=== PATIENT | male | born 1985 | race Two or more races ===

== ENCOUNTER 2022-10-14 03:39 | Inpatient (IN) | payer SELFPAY ==
[~2022-10-14] VITALS: Ht 165.1 cm; Wt 99.8 kg
--- NOTE | 2022-10-14 03:49 | NUR ---
BIBRA 60 FROM OUTSIDE BAR C/O SEIZURE PER PT HAS HISTORY OF SEIZURE PER PT DRANK SOME ALCOHOL TONIGHT. PATIENT IS A/O X 4, RR EVEN AND UNLABORED NO SOB NOTED. VSS. NO ACUTE DISTRESS NOTED. WILL CONTINUE TO MONITOR.
[2022-10-14] MEDS ORDERED: LEVETIRACETAM (500MG) 500 MG/5 ML VIAL IV ONE (03:53)
[2022-10-14] MEDS ORDERED: LEVETIRACETAM (500MG) 1,000 MG in IV NS 0.9% 100 ML IV SCH (04:00)
[2022-10-14] MEDS ORDERED: LORAZEPAM INJ 2 MG/ML VIAL ONE ×3 (04:16→12:34)
[2022-10-14] MEDS ORDERED: LORAZEPAM INJ 2 MG/ML VIAL IV ONE ×2 (04:30→13:00)
--- NOTE | 2022-10-14 04:49 | NUR ---
BLOOD WORK COLLECTED SENT TO LAB
[2022-10-14 05:07] LABS: BASOPHILS # (AUTO) 0.1 K/uL (0.0-0.2); BASOPHILS % (AUTO) 0.7 % (0.0-2.0); EOSINOPHILS % (AUTO) 1.1 % (0.0-6.0); HEMATOCRIT 43 % (39-51); HEMOGLOBIN 14.4 g/dL (13.5-17.5); LYMPHOCYTES # (AUTO) 2.1 K/uL (0.8-4.8); MEAN CORPUSCULAR HGB CONC 34 g/dl (31.0-36.0); MEAN CORPUSCULAR VOLUME 86 fL (80-96); MONOCYTES # (AUTO) 0.3 K/uL (0.1-1.30); MONOCYTES % (AUTO) 4.1 % (2.0-12.0); NEUTROPHILS # (AUTO) 4.7 K/uL (1.8-8.9); NEUTROPHILS % (AUTO) 65.1 % (43.0-81.0); PLATELET COUNT (AUTO) 271 K/uL (150-450); RED BLOOD CELL COUNT(AUTO) 4.97 MIL/uL (4.5-6.0); WHITE BLOOD COUNT (AUTO) 7.2 K/uL (4.3-11.0)
[2022-10-14 05:32] LABS: CALCIUM, SERUM 8.9 mg/dL (8.5-10.1); CREATININE 2.2 mg/dL (0.6-1.3); POTASSIUM 3.7 mmol/L (3.5-5.1)
[2022-10-14 05:49] LABS: PHENYTOIN (DILANTIN) 0.7 ug/ml (10.0-20.0)
[2022-10-14] MEDS ORDERED: LEVE500T9 PO (06:07)
[2022-10-14] MEDS ORDERED: ACETAMINOPHEN ES 500 MG TABLET PO ONE (07:00)
[2022-10-14] MEDS ORDERED: ACETAMINOPHEN ES 500 MG TABLET ONE (07:01)
--- NOTE | 2022-10-14 07:07 | NUR ---
Patient discharged to home in stable condition. Written and verbal after care instructions given. Patient verbalizes understanding of instruction.
--- NOTE | 2022-10-14 07:15 | NUR ---
UPON D/C PATIENT HAD SEIZURE. ER MADE AWARE. PT VSS.
[2022-10-14] MEDS ORDERED: LORAZEPAM INJ 2 MG/ML VIAL IVP ONE (07:30)
--- NOTE | 2022-10-14 07:45 | NUR ---
covid swab taken sent to lab
--- NOTE | 2022-10-14 07:51 | NUR ---
Witnessed Siezure lasting approx 1 min nd 45secs. Ativan Given. Pt now AAOx4. responding appropritely, able to make needs known. c/o of headache. Pending admit
--- NOTE | 2022-10-14 07:56 | NUR ---
MOVE SHEET SUBMITTED
--- NOTE | 2022-10-14 08:21 | NUR ---
COVID SWAB COLLECTED AND SENT TO LAB
--- NOTE | 2022-10-14 08:41 | NUR ---
[facility] PAGED
--- NOTE | 2022-10-14 09:33 | NUR ---
[facility] PAGED
[2022-10-14] MEDS ORDERED: PHEN100C4 PO (09:34)
--- NOTE | 2022-10-14 10:08 | NUR ---
[facility] PAGED
--- NOTE | 2022-10-14 10:08 | NUR ---
DR KNIGHT SPEAKING W/ DR DOS SANTOS
[2022-10-14] MEDS ORDERED: AMLO-213 PO (12:01)
--- NOTE | 2022-10-14 12:46 | NUR ---
Another Witness Seizure. Dr Hank Gamez notified. Ativan 2 mg x1 given. Cont seizure precatuion. Cont with medical managment/Anti Seizure meds. Pt responsive post ictal. awaiting for bed assignment. VSS. no distress noted.
[2022-10-14] MEDS ORDERED: LORAZEPAM INJ 2 MG/ML VIAL IV PRN (13:30)
[2022-10-14] MEDS: LEVETIRACETAM (250 MG) 250 MG TABLET PO SCH ×2 (13:30→17:30)
[2022-10-14] MEDS ORDERED: IV D5/0.45 NACL 1,000 ML IV PRN (13:30)
[2022-10-14] MEDS ORDERED: ONDANSETRON HCL/PF 4 MG/2 ML VIAL IVP PRN (13:30)
[2022-10-14] MEDS ORDERED: PHENYTOIN EXTENDED RELEASE 100 MG CAPSULE PO SCH ×2 (13:30→22:00)
[2022-10-14] MEDS ORDERED: phenytoin SODIUM IV 1,000 MG in IV NS 0.9% 100 ML IV ONE (17:00)
[2022-10-14 17:12] VITALS: BP 118/59
[2022-10-14] MEDS ORDERED: LEVETIRACETAM (250 MG) 250 MG TABLET PO ONE (17:24)
[2022-10-14] MEDS ORDERED: PHENYTOIN EXTENDED RELEASE 100 MG CAPSULE PO ONE (17:25)
--- NOTE | 2022-10-14 19:57 | NUR ---
REPORT GIVEN TO SOY RN FOR MINDY
--- NOTE | 2022-10-14 20:25 | NUR ---
POCKET MARKER NOTES RECEIVED PATIENT FROM ER VIA GURNEY ACCOMPANIED BY RN AND GUN PROFILER. A/O X4. AMBULATORY. BREATHING ON ROOM AIR, 02 SAT 98%. NO SIGNS OF RESPIRATORY DISTRESS. IV ACCESS ON THE LEFT WRIST #20, NOT PATENT AND INFILTRATED, PLACED ICE PACK OVER THE SITE. RE-INSERTED IV AT RIGHT FA #22, PATENT AND INFUSING WELL. GIVEN DILANTIN 200MG ORALLY, TOLERATING WELL. ORIENTED TO ROOM SET-UP. ON SEIZURE PRECAUTION. SIDE RAILS PADDED AND UP X3. SAFETY MEASURE INITIATED.
--- NOTE | 2022-10-14 20:35 | NUR ---
RN NOTES - SEIZURE PATIENT IS HAVING A SEIZURE STARTED 2034, TELE READING SINUS RHYTHM HR 120 AT THIS TIME. SEIZURE ENDED 2042.
--- NOTE | 2022-10-14 20:39 | NUR ---
PATIENT TRANSFERRED UNDER ACLS
--- NOTE | 2022-10-14 23:00 | NUR ---
RN NOTES - AMA PATIENT WILL LEAVE THE HOSPITAL AGAINST MEDICAL ADVISE. SIGNED WAIVER VOLUNTARILY. CHARGE NURSE MADE AWARE. EXPLAINED RISK OF GOING AMA SINCE HE IS UNSTABLE AND STILL WITH RECURRENT SEIZURE. VERBALIZED UNDERSTANDING BUT STILL WILL GO AMA. WILL CONTINUE TO MONITOR
--- NOTE | 2022-10-15 | NUR ---
RN NOTES RETURNED ALL BELONGINGS AND SIGNED ACCEPTANCE. PATIENT WAS ACCOMPANIED OUTSIDE ER WITH RN AND HOSPITAL TECHNICIAN. TRANSPORTED SAFELY TO HIS BROTHER'S CAR.
[2022-10-15] MEDS ORDERED: AMLODIPINE BESYLATE 10 MG TABLET PO SCH (09:00)
[2022-10-15] MEDS ORDERED: PANTOPRAZOLE 40 MG VIAL IV SCH (09:00)
[2022-10-15] MEDS ORDERED: LEVETIRACETAM (250 MG) 250 MG TABLET PO SCH (20:00)
== END 2022-10-15 03:00 | disposition left against medical advice (07) | DRG 101 ==
LOC: ER 03:41 → TRANSITION 17:47 → TELE 19:43
DX: G40.909 Epilepsy, unspecified, not intractable, without status epilepticus (principal); E66.9 Obesity, unspecified; Z20.822 Contact with and (suspected) exposure to COVID-19; I12.9 Hypertensive chronic kidney disease with stage 1 through stage 4 chronic kidney disease, or unspecified chronic kidney disease; N18.9 Chronic kidney disease, unspecified; F10.129 Alcohol abuse with intoxication, unspecified; Y90.4 Blood alcohol level of 80-99 mg/100 ml; Z68.36 Body mass index [BMI] 36.0-36.9, adult
CPT/HCPCS: 36415; 80048-TC; 80185-TC; 85025-TC; 87081-TC; 94799-TC; C9803; G0378; G0480; J1165; J1953; J2060; J3490; J7030